=== PATIENT | female | born 1985 | race Caucasian/White ===

== ENCOUNTER 2017-05-15 16:51 | Emergency (ER) | payer BC, OTHER ==
[~2017-05-15] VITALS: Ht 165.1 cm; Wt 102.5 kg
[~2017-05-15 16:51] MED LIST: ADV10050 INH; ALBU8.5H3 INH
[2017-05-15 17:09] VITALS: Ht 165.1 cm; Wt 102.5 kg
[2017-05-15] MEDS ORDERED: ONDANSETRON (ODT) 4 MG TAB ODT STA (19:40)
--- NOTE | 2017-05-15 19:51 | ERD ---
ER Documentation Chief Complaint Date/Time DATE: 05/15/17 TIME: 19:46 Chief Complaint sent by PCP for intermittent CP and arm numbness x 4 days (VAIBHAV ZAMORA PA-C) HPI This is a 31-year-old female who presents the emergency department today for intermittent chest pain and left arm pain and numbness for the past 4 days. Patient states that she feels some shortness of breath. States that she also has pain on the left side of her back and has a history of kidney stones and she did a urine test today at work and has blood in her urine. States that she has some nausea and was given medication for the problem in her urine but she is unsure of the name. States that someone at her work at [employer] told her that she should come to the emergency department. She has not taken any medication for the pain. (VAIBHAV ZAMORA PA-C) ROS All systems reviewed and are negative except as per history of present illness. (VAIBHAV ZAMORA PA-C) Medications Home Meds Active Scripts Cyclobenzaprine Hcl* (Cyclobenzaprine Hcl*) 10 Mg Tablet, 10 MG PO QHS, #7 TAB Prov:VAIBHAV ZAMORA PA-C 05/15/17 Ibuprofen* (Motrin*) 600 Mg Tab, 600 MG PO Q6, #30 TAB Prov:VAIBHAV ZAMORA PA-C 05/15/17 Cephalexin* (Keflex*) 500 Mg Capsule, 500 MG PO QID for 7 Days, CAP Prov:VAIBHAV ZAMORA PA-C 05/15/17 Reported Medications Albuterol Sulfate* (Proair HFA*) 8.5 Gm Hfa.aer.ad, 2 PUFF INH Q4H Y for WHEEZING AND SOB, INH 12/08/14 Salmeterol Xinaf-Fluticasone* (Advair*) 100/50 Diskus Inhaler, 1 INH INH BID, INH 12/08/14 Allergies Allergies: Coded Allergies: metoclopramide (Verified Allergy, Mild, 05/15/17) ondansetron (Verified Allergy, Unknown, 05/15/17) PMhx/Soc History of Surgery: Yes ( x7;Cholecystectomy) Anesthesia Reaction: No Hx Neurological Disorder: No Hx Respiratory Disorders: No Hx Cardiac Disorders: No Hx Psychiatric Problems: No Hx Miscellaneous Medical Probl: Yes (Gallstones;Ovarian Cysts) Hx Alcohol Use: No Hx Substance Use: No Hx Tobacco Use: No Smoking Status: Never smoker (VAIBHAV ZAMORA PA-C) Physical Exam Vitals Vital Signs Date Time Temp Pulse Resp B/P Pulse Ox O2 Delivery O2 Flow Rate FiO2 05/15/17 22:16 80 16 132/89 96 Room Air 05/15/17 17:09 98.3 72 18 134/82 97 (EILEEN DARBY MD) Physical Exam Const: obese, NAD Head: Atraumatic Eyes: Normal Conjunctiva ENT: Normal External Ears, Nose and Mouth. Neck: Full range of motion..~ No meningismus. Resp: Clear to auscultation bilaterally. Tenderness to palpation left side of chest wall. Pain with flexion of arm Cardio: Regular rate and rhythm, no murmurs Abd: Soft, non tender, non distended. Normal bowel sounds Skin: No petechiae or rashes Back: No midline tenderness. Sided flank pain. No CVA tenderness. Ext: No cyanosis, or edema Neur: Awake and alert Psych: Normal Mood and Affect (VAIBHAV ZAMORA PA-C) Results 24 hrs Laboratory Tests Test 05/15/17 20:15 Urine Color YELLOW Urine Clarity SLIGHTLY CLOUDY Urine pH 7.0 Urine Specific Preston 1.019 Urine Ketones NEGATIVEmg/dL Urine Nitrite NEGATIVEmg/dL Urine Bilirubin NEGATIVEmg/dL Urine Urobilinogen 1+mg/dL Urine Leukocyte Esterase 2+Moise/ul Urine Microscopic RBC 2/HPF Urine Microscopic WBC 13/HPF Urine Squamous Epithelial Cells FEW/HPF Urine Bacteria FEW/HPF Urine Mucus FEW/HPF Urine Hemoglobin NEGATIVEmg/dL Urine Glucose NEGATIVEmg/dL Urine Total Protein NEGATIVEmg/dl Current Medications Medications (Trade) Dose Ordered Sig/Tito Route PRN Reason Start Time Stop Time Status Last Admin Dose Admin Ondansetron HCl (Zofran Odt) 4 mg ONCE STAT ODT 05/15/17 19:40 05/15/17 19:41 Cancel Ibuprofen (Motrin) 800 mg ONCE ONCE PO 05/15/17 20:00 05/15/17 20:01 DC 05/15/17 19:53 (EILEEN DARBY MD) Results 24 hrs DIAGNOSTIC IMAGING REPORT Patient: CHERYL PRESCOTT DOB: 1985 Age: 31 Sex: F MR #: [id number] DOS: 05/15/17 0000 Ordering MD: VAIBHAV ZAMORA PA-C Location: [facility] Room/Bed: PROCEDURE: XR Chest. CLINICAL INDICATION: Chest pain TECHNIQUE: Single frontal view of the chest. COMPARISON: None. FINDINGS: The cardiomediastinal silhouette is within normal limits. The lungs are clear. No signs of pleural fluid or pneumothorax are seen. The osseous structures and soft tissues are unremarkable. IMPRESSION: No evidence for active cardiopulmonary disease. RPTAT: [facility] Physician Luis Miguel Date Time Electronically viewed and signed by Bud Bianchi Physician on 05/15/2017 20:47 RS/ CC: VAIBHAV ZAMORA PA-C (VAIBHAV ZAMORA PA-C) Procedures/MDM This is a 31-year-old female who presents the emergency department today with multiple complaints. Patient was primarily complaining of chest pain and some shortness of breath as well as some left-sided flank pain and therefore given patient's history of kidney stones I did obtain a UA, urine test, EKG and chest x-ray EKG read and interpreted by Dr. Darby rate [address] elevation. No QT prolongation. Low suspicion for acute SC, PE, pericarditis Chest x ray shows no evidence for active cardiopulmonary disease. Lungs are clear. There are no signs of pleural fluid or pneumothorax. Low suspicion for PE, abscess, pleural effusion, pneumothorax. UA shows 2+ leukocyte esterase and 13 microscopic white blood cells. Negative nitrates. urine test is negative Symptoms at this time is consistent with chest wall pain and urinary tract infection.. Patient had recent pain in her chest when she brought her left arm up and her symptoms at this time appear most consistent with costochondritis given reproducible symptoms. She may also have some element of cervical radiculopathy given her complaints of left arm numbness. Patient also has evidence of urinary tract infection. I did send the urine for culture as patient indicated she had recently had a urinary tract infection but was unsure of the medication she was taking for it. She is afebrile and otherwise well-appearing. She has no CVA tenderness and I have low suspicion for pyelonephritis or nephrolithiasis at this time. She was given Motrin in the emergency department. She declined Zofran stating that she did not like the way it made her feel. She indicates she had a allergy to Reglan. I did have Dr. Darby see and evaluate the patient and recommended a prescription for Flexeril as well. He does not feel the patient requires further workup at this time. She will be given a prescription for Naprosyn, Tylenol, Keflex for home At this time the patient is stable for discharge and outpatient management. Patient should follow up with their PCP in the next 1-2 days. They may return to the emergency department sooner for any persistent or worsening of symptoms. Patient understood and agreed with the plan. (VAIBHAV ZAMORA PA-C) I evaluated the patient. She is a 31-year-old female who is complaining of focal left upper chest pain that is sharp and lasts for less than 30 seconds. Is exacerbated by certain movements of the head. She does complain of occasional paresthesias in the left arm. I suspect her symptoms are related to muscle spasm with radicular symptoms. Her EKG was nonischemic and x-ray was unremarkable. Advised Flexeril, heat, Motrin, and return precautions. (EILEEN DARBY MD) Departure Diagnosis: Primary Impression: Chest pain Chest pain type: unspecified Qualified Code: R07.9 - Chest pain, unspecified type Additional Impression: Flank pain Condition: Fair VAIBHAV ZAMORA PA-C May 15, 2017 19:51 EILEEN DARBY MD May 15, 2017 23:43
[2017-05-15] MEDS ORDERED: IBUPROFEN 800 MG TAB PO ONE (20:00)
--- NOTE | 2017-05-15 20:48 | RADRPT ---
PROCEDURE: XR Chest. CLINICAL INDICATION: Chest pain TECHNIQUE: Single frontal view of the chest. COMPARISON: None. FINDINGS: The cardiomediastinal silhouette is within normal limits. The lungs are clear. No signs of pleural f luid or pneumothorax are seen. The osseous structures and soft tissues are unremarkable. IMPRESSION: No evidence for active cardiopulmonary disease. RPTAT: [facility] Physician Luis Miguel Date Time Electronically viewed and signed by Physician Luis Miguel on 05/15/2017 20:47 RS/
[2017-05-15 21:20] LABS: ADD UMIC YES; UR ASCORBIC ACID NEGATIVE (NEGATIVE); UR BACTERIA FEW /HPF (NONE SEEN); UR BILIRUBIN (Dip) NEGATIVE (NEGATIVE); UR BLOOD (Dip) NEGATIVE (NEGATIVE); UR CLARITY SLIGHTLY CLOUDY (CLEAR); UR COLOR YELLOW (YELLOW); UR GLUCOSE (Dip) NEGATIVE (NEGATIVE); UR KETONES (Dip) NEGATIVE (NEGATIVE); UR LEUKOCYTE ESTERASE (Dip) 2+ Leu/ul (NEGATIVE); UR MUCUS FEW /HPF (NONE SEEN); UR NITRITE (Dip) NEGATIVE (NEGATIVE); UR RBC 2 /HPF (0-5); UR SPECIFIC GRAVITY (Dip) 1.019 (1.003-1.030); UR SQUAMOUS EPITHELIAL CELL FEW /HPF (FEW); UR TOTAL PROTEIN (Dip) NEGATIVE (NEGATIVE); UR UROBILINOGEN (Dip) 1+ mg/dL (NEGATIVE)
[2017-05-15] MEDS ORDERED: CEPH-443 PO (22:07)
[2017-05-15] MEDS ORDERED: CYCL-319 PO (22:08)
[2017-05-15] MEDS ORDERED: IBUP-1542 PO (22:08)
[2017-05-15 22:16] VITALS: BP 132/89; PULSE 80; RESP 16
== END 2017-05-15 22:20 | disposition home or self-care (01) ==
LOC: FTE 16:51
DX: R07.89 Other chest pain (principal); R10.9 Unspecified abdominal pain
CPT/HCPCS: 71010; 81001; 87086; 93005; Z7502; Z7610

== ENCOUNTER 2018-12-02 23:46 | Observation (INO) | payer OTHER ==
[~2018-12-02] VITALS: Ht 160 cm; Wt 105.6 kg
[~2018-12-02 23:46] MED LIST changes: -ALBU8.5H3 INH; +ALBU8.5H8 INH; +CEPH-443 PO; +CYCL10TA7 PO; +IBUP-1542 PO
--- NOTE | 2018-12-03 00:14 | STROKE ---
Date/Time of Note Date/Time of Note DATE: 12/03/18 TIME: 02:01 Patient Information General Arrival Date Age 33 Gender female Weight Patient History Current Medications Allergies: Coded Allergies: metoclopramide (Verified Allergy, Mild, 05/15/17) ondansetron (Verified Allergy, Unknown, 05/15/17) History & Physical History of Present Illness 33yo woman h/o prior stroke with residual left sided deficits consulted for acute stroke. 1145pm onset. Was visiting friend in ICU, sitting down, then felt left side become tingling and vision blurred. Has had a stroke in October. Distressed over friend in ICU; friend in coma per patient. NIH Stroke Scale NIH Stroke Scale Nwzod9Sg l4d LOC Questions: Igyjy7g LOC Commands: Zvqas9q t Gaze: Xbfyk4w al: Gzpks6s ial Palsy: Kwsww8q tor Arm - Left: Tstpz0h otor Arm - Right: Qmsqm2n eft: Njzcy3b otor Leg - Right: Fdcwp3h Ywdmc7b Gfvwq9a est Language: Qcugq3n dat: Nnwfn6c Tgnbg0t cuvq6Xw Total Score: Brsus1l te/Time Recorded DATE: 12/03/18 TIME: 02:01 Submitted By Deyanira Wilkins t-PA Imaging Review Date/Time Imaging Reviewed DATE: 12/03/18 TIME: 02:[address]: no acute intracranial process t-PA Administration Weight Recommedation submitted by Deyanira Wilkins Recommendations Recommendation Appears approaching baseline. Atypical for acute vascular process. Can clinically follow for now regarding neurologic status. DEYANIRA WILKINS December 03, 2018 00:12
[2018-12-03] MEDS ORDERED: morphine 4 MG/ML VIAL IV STA (00:20)
[2018-12-03] MEDS ORDERED: LORAZEPAM 2 MG INJ IV ONE (00:30)
[2018-12-03] MEDS ORDERED: ASPIRIN 81 MG TAB PO ONE (00:30)
[2018-12-03] MEDS ORDERED: PROCHLORPERAZINE 10 MG INJ IV STA (00:48)
[2018-12-03] MEDS ORDERED: DIPHENHYDRAMINE 50 MG INJ IV STA (00:48)
[2018-12-03] MEDS ORDERED: SOD CHLORIDE 0.9% 1,000 ML IV STA (00:48)
--- NOTE | 2018-12-03 01:19 | ERD ---
ER Documentation Chief Complaint Chief Complaint LEFT SIDED WEAKNESS AND FACIAL DROOP HPI This is a 33-year-old female with prior history of stroke. Patient is a somewhat difficult historian. It appears that approximately 10 to 15 minutes prior to arrival she was visiting a friend in the ICU was emotionally upset had vision changes of binocular blurry vision and then renetta vision loss. The patient also notes numbness and tingling to the right side of her face. Patient had a stroke one year ago and refused TPA. The patient has since had facial droop and deficits of the right face with forehead sparing. She has paralysis of her left upper extremity and weakness of the left lower extremity. This is unchanged per the patient currently. ROS All systems reviewed and are negative except as per history of present illness. Medications Home Meds Active Scripts Cyclobenzaprine Hcl* (Cyclobenzaprine Hcl*) 10 Mg Tablet, 10 MG PO QHS, #7 TAB Prov:VAIBHAV ZAMORA PA-C 05/15/17 Ibuprofen* (Motrin*) 600 Mg Tab, 600 MG PO Q6, #30 TAB Prov:VAIBHAV ZAMORA PA-C 05/15/17 Cephalexin* (Keflex*) 500 Mg Capsule, 500 MG PO QID for 7 Days, CAP Prov:VAIBHAV ZAMORA PA-C 05/15/17 Reported Medications Albuterol Sulfate* (Proair HFA*) 8.5 Gm Hfa.aer.ad, 2 PUFF INH Q4H PRN for WHEEZING AND SOB, INH 12/08/14 Salmeterol Xinaf-Fluticasone* (Advair*) 100/50 Diskus Inhaler, 1 INH INH BID, INH 12/08/14 Allergies Allergies: Coded Allergies: metoclopramide (Verified Allergy, Mild, 05/15/17) ondansetron (Verified Allergy, Unknown, 05/15/17) PMhx/Soc History of Surgery: Yes ( x7;Cholecystectomy) Anesthesia Reaction: No Hx Neurological Disorder: Yes (STROKE 2018) Hx Respiratory Disorders: Yes (asthma) Hx Cardiac Disorders: Yes (htn) Hx Psychiatric Problems: No Hx Miscellaneous Medical Probl: Yes (Gallstones;Ovarian Cysts) Hx Alcohol Use: No Hx Substance Use: No Hx Tobacco Use: No Smoking Status: Never smoker FmHx Family History: No diabetes Physical Exam Vitals Vital Signs Date Temp Pulse Resp B/P (MAP) Pulse Ox O2 O2 Flow FiO2 Time Delivery Rate 12/03/18 100 16 143/88 100 Nasal 2.0 00:35 (106) Cannula 12/03/18 Nasal 2.0 00:28 Cannula 12/03/18 Nasal 2 00:19 Cannula 12/03/18 99.1 116 17 143/103 96 00:05 (116) Physical Exam General: Well developed, well nourished, no acute distress Head: Normocephalic, atraumatic. Eyes: Pupils equally reactive, EOM intact ENT: Moist mucous membranes Neck: Supple, no lymphadenopathy Respiratory: Lungs clear bilaterally, no distress Cardiovascular: RRR, no murmurs, rubs, or gallops Abdominal: Soft, non-tender, non-distended, no peritoneal signs : Deferred MSK: No edema, no unilateral swelling, left upper extremity weakness, left lower extremity weakness. Neurologic: The patient is alert, conversive. She has a facial droop with a right lower face sparing of the forehead. She has paralysis of the left upper extremity weakness of the left lower extremity. Patient has no field cuts. Her clinical exam is reported to be at her baseline. Skin: No rash Psych: Normal mood Result Diagram: 12/02/18 7624 12/02/18 0546 Results 24 hrs Laboratory Tests Test 12/02/18 23:55 12/02/18 23:56 12/03/18 00:26 White Blood Count 11.3 10^3/ul Red Blood Count 4.72 10^6/ul Hemoglobin 14.6 g/dl Hematocrit 43.8 % Mean Corpuscular Volume 92.8 fl Mean Corpuscular Hemoglobin 30.9 pg Mean Corpuscular 33.3 g/dl Hemoglobin Concent Red Cell Distribution Width 12.2 % Platelet Count 338 10^3/UL Mean Platelet Volume 9.4 fl Immature Granulocytes % 0.500 % Neutrophils % 63.2 % Lymphocytes % 26.9 % Monocytes % 7.3 % Eosinophils % 1.7 % Basophils % 0.4 % Nucleated Red Blood Cells % 0.0 /100WBC Immature Granulocytes # 0.060 10^3/ul Neutrophils # 7.2 10^3/ul Lymphocytes # 3.0 10^3/ul Monocytes # 0.8 10^3/ul Eosinophils # 0.2 10^3/ul Basophils # 0.1 10^3/ul Nucleated Red Blood Cells # 0.0 10^3/ul Prothrombin Time 12.2 Sec Prothrombin Time Ratio 1.0 INR International Normalized Ratio 0.89 Activated Partial Thromboplast 25.6 Sec Time Sodium Level 139 mmol/L Potassium Level 3.7 mmol/L Chloride Level 99 mmol/L Carbon Dioxide Level 28 mmol/L Anion Gap 12 Blood Urea Nitrogen 17 mg/dl Creatinine 0.71 mg/dl Est Glomerular Filtrat Rate mL/min > 60 mL/min Glucose Level 133 mg/dl Hemoglobin A1c 5.5 % Calcium Level 9.8 mg/dl Creatine Kinase 78 IU/L Creatine Kinase Index 0.3 Creatinine Kinase MB (Mass) < 0.22 ng/ml Troponin I < 0.012 ng/ml Triglycerides Level 182 mg/dl Cholesterol Level 227 mg/dl LDL Cholesterol, Calculated 122 mg/dl HDL Cholesterol 69 mg/dl Cholesterol/HDL Ratio 3.2 RATIO Ethyl Alcohol Level < 10.0 mg/dl Bedside Glucose 128 mg/dL Current Medications Medications Dose Sig/Tito Start Time Status Last (Trade) Ordered Route PRN Stop Time Admin Dose Reason Admin Morphine 4 mg ONCE STAT 12/03/18 DC 12/03/18 Sulfate IV 00:20 12/03/18 00:39 (morphine) 00:21 Lorazepam 0.5 mg ONCE ONCE 12/03/18 DC 12/03/18 (Ativan) IV 00:30 12/03/18 00:39 00:31 Aspirin 162 mg ONCE ONCE 12/03/18 DC 12/03/18 (Aspirin) PO 00:30 12/03/18 00:39 00:31 Sodium 1,000 ml @ Q1H STAT 12/03/18 DC 12/03/18 Chloride 1,000 mls/hr IV 00:48 12/03/18 01:16 01:47 10 mg ONCE STAT 12/03/18 DC 12/03/18 Prochlorperaz IV 00:48 12/03/18 01:16 ine 00:50 (Compazine Inj) 25 mg ONCE STAT 12/03/18 DC 12/03/18 Diphenhydrami IV 00:48 12/03/18 01:16 ne HCl 00:50 (Benadryl) 650 mg ER BRIDGE 12/03/18 Acetaminophen PRN PO 03:30 12/04/18 (Tylenol .MILD PAIN 03:29 Tab) 1-3 OR TEMP Procedures/MDM EKG, MONITORS, & DIAGNOSTIC IMAGING: EKG: I reviewed and interpreted a 12-lead EKG. Rhythm: Normal sinus rhythm Ectopy: None Arrhythmia: None Intervals: No abnormalities ST segments: No elevations or depressions T waves: No contiguous inversions Interpretation: No acute cardiac ischemia Chest x-ray: I reviewed and interpreted a 1 view of the chest Mediastinum: No enlargement Cardiac silhouette: No cardiomegaly Airspace: Clear lung calderon bilaterally without evidence of pneumothorax Bones: No evidence of fracture Interpretation: No acute cardiopulmonary process CT Brain: No acute process per verbal report CTA Head and Neck: IMPRESSION: 1. No intracranial thrombosis or occlusion identified. 2. No hemodynamically significant carotid bulb stenosis. Minimal calcified plaque at the left carotid bulb. 3. No aneurysm or vascular malformation. Findings reported to Dr. Inman on 12/03/2018 2:59:21 AM. NASCET CAROTID STENOSIS CRITERIA (distal normal appearing ICA as denominator for measurement): 0%-none, 1-49%-mild, 50-70%-moderate, 70-89%-severe, 90-99%-critical. RPTAT: HMVK LAB INTERPRETATION: * No acute process MEDICAL DECISION MAKING: The patient presents with acute onset vision changes. The patient was under emotional situation and very stressed out. Patient does have a prior stroke with residual right-sided facial droop and left upper extremity paresthesia, paralysis and left lower extremity weakness. These neurologic findings are unchanged. A code stroke was initiated based on the patient's neurologic findings however based on further conversation and history appears that these are old and unchanged. The only acute change was that the patient had bilateral, binocular blurred vision and vision loss that is temporary and now resolved. ER COURSE: Stroke assessment and timing: Last known well time: 10 to 15 minutes prior to arrival Arrival to ED: see EMR Stroke code activation: [address] scan: 2355 Initial neurology discussion: 2354 NIHSS: 13 TPA decision-making: Given that the patient has resolved symptoms, baseline symptoms of right-sided facial droop, left upper extremity paralysis and left lower extremity weakness that is unchanged the patient is not a good TPA candidate. The risks greatly outweigh the benefits. She is at her neurologic baseline from prior stroke. She does not have life altering deficit. Interventional decision-making: Similar reasoning as documented above. CTA pending. Stroke neurologist on-call: Dr. Omalley Critical Care Note: Total time: 35 minutes Indication/Organ System Threat: Acute neurologic deficit and stroke code activation that requires emergent evaluation and assessment to prevent neurologic compromising collapse. I spent the above amount of critical care time with the patient, not including billable procedures. This included chart review, consultations, repeat bedside evaluations, and titration of appropriate medications to prevent cardiopulmonary or respiratory collapse. I kept the patient and/or family informed of laboratory and diagnostic imaging results throughout the emergency room course. ER update: The patient has had intermittent waxing and waning symptoms of right-sided facial droop. On assessment there is some behavioral component. Consider possible migraine headache. I discussed the waxing and waning changes with Dr. Omalley. We also had further conversation with the patient he states that this is normal and consistent with what is been going on for the past 1 year. Based on this conversation, this history I do not believe she is a TPA candidate. A CTA might be reasonable but very low concern for large vessel occlusion. Aspirin provided. Anxiolysis provided. Migraine medication provided. CTA negative, patient sleeping. DISPOSITION PLAN: Accepting care team and consultations: I discussed the current laboratory data, diagnostic imaging and emergency care provided. Admitting team: Dr Hillman Admitting team indication: Insurance directed I believe the patient is unstable for transportation at this time. Departure Diagnosis: Primary Impression: History of stroke Additional Impressions: Paresthesia Vision changes Anxiety reaction Condition: Stable NEGAR INMAN MD December 03, 2018 01:19
[2018-12-03] MEDS ORDERED: ACETAMINOPHEN 325 MG TAB PO PRN (03:30)
[2018-12-03] MEDS ORDERED: AMLO-147 PO (03:48)
[2018-12-03] MEDS ORDERED: LOSA1TAB22 PO (03:48)
--- NOTE | 2018-12-03 10:48 | PDOCDIS ---
Discharge Instructions CONDITION [id number] Patient Condition: [id number] Good HOME CARE INSTRUCTIONS: [id number] Diet Instructions: [id number] FOLLOW UP/APPOINTMENTS Follow-up Plan pcp 1 week BECKI OLIVER MD December 03, 2018 10:48
[2018-12-03] MEDS ORDERED: [UNRECOGNIZED DRUG - CODE] PO (10:50)
--- NOTE | 2018-12-03 13:24 | HP ---
DATE OF ADMISSION: 12/02/2018 CHIEF COMPLAINT: Left facial tingling and loss of vision. HISTORY OF PRESENT ILLNESS: A 33-year-old female with previous history of CVA, presented to emergenc y room with complaint of left facial tingling and loss of vision in both eyes. The patient has histo ry of anxiety. She was undergoing a lot of stress at that time. The patient denies any focal weakne ss or numbness in the extremities. By the time she was evaluated in the emergency room, her vision w as back but blurry. CAT scan of brain was unremarkable. CT pulmonary angiogram was also normal with no evidence of occlusion. The patient was evaluated by neurology per telestroke. She was not erich date for TPA. Symptoms were found to be atypical for acute vascular process. PAST MEDICAL HISTORY: 1. History of old CVA. 2. Hypertension. MEDICATIONS PRIOR TO ADMISSION: 1. Albuterol inhaler. 2. Amlodipine. 3. Losartan. 4. Advair. 5. Aspirin. PHYSICAL EXAMINATION: GENERAL: Well-developed, well-nourished female who is in no apparent distress. VITAL SIGNS: Stable. She is afebrile. HEENT: Extraocular muscles are intact. Pupils are equal and reactive to light bilaterally. Visual acuity is normal. Oropharynx is clear. NECK: Supple. LUNGS: Clear to auscultation bilaterally. CARDIAC: Regular rate and rhythm. No murmurs, rubs or gallops. ABDOMEN: Soft, nontender, nondistended, normoactive bowel sounds. EXTREMITIES: No clubbing, cyanosis or edema. NEUROLOGICAL: No facial droop. Cranial nerves II through XII are intact. Left upper extremity with 4/5 strength. Left lower extremity also with 4/5 strength. ASSESSMENT: 1. A 33-year-old female with left facial numbness and transient loss of vision in bilateral eyes. T his was found to be atypical for a vascular stroke. 2. History of old cerebrovascular accident with mild residual left hemiparesis. 3. Hypertension. PLAN: 1. Place in tele observation. Proceed with MRI of brain. Resume home medications. 2. Discharge planning to home if MRI is normal. Dictated By: BECKI CHAN/DESIRAE Conf#: [id number] DID#: [id number] CC: NEGAR BLAS MD;*[facility]*
[2018-12-03 14:55] VITALS: BP 127/71; PULSE 88; RESP 18
[2018-12-03 14:58] VITALS: Ht 160 cm; Wt 105.6 kg
[2018-12-03 16:17] VITALS: PULSE 81
[2018-12-03 19:32] VITALS: BP 141/73; PULSE 92; RESP 18
[2018-12-03 19:36] VITALS: BP 123/69; PULSE 101; RESP 17
== END 2018-12-03 19:50 | disposition home or self-care (01) ==
LOC: E/R 23:46 → 6WM 12-03 03:17
PROVIDERS: ADMIT Internal Medicine; ATTEND Internal Medicine
DX: R20.0 Anesthesia of skin (principal); H54.3 Unqualified visual loss, both eyes; I69.354 Hemiplegia and hemiparesis following cerebral infarction affecting left non-dominant side; I10 Essential (primary) hypertension; Z79.82 Long term (current) use of aspirin
CPT/HCPCS: 36415; 70450; 70496; 70498; 70551; 71045; 80048; 80061; 80307; 82550; 82553; 82962; 83036; 84484; 85025; 85610; 85730; 93005; 96374; 96375; J0780; J1200; J2060; J2270; J7030; Z7500; Z7502; Z7610; G0378